=== PATIENT | female | born 1980 | race Caucasian/White ===

== ENCOUNTER 2018-12-12 06:16 | Day surgery (SDC) | payer OTHER ==
[2018-12-09 15:02] LABS: BASOPHILS # (AUTO) 0.05 x10^3/uL (0-0.1); BASOPHILS % (AUTO) 1 % (0-1); EOSINOPHILS # (AUTO) 0.09 x10^3/uL (0-0.4); EOSINOPHILS % (AUTO) 1 % (1-7); LYMPHOCYTES # (AUTO) 2.15 x10^3/uL (1-3.4); LYMPHOCYTES % (AUTO) 27 % (22-44); MD NO; MEAN CORPUSCULAR HEMOGLOBIN 31.5 pg (27.0-34.8); MEAN CORPUSCULAR HGB CONC 34.6 g/dL (32.4-35.8); MEAN PLATELET VOLUME 8.9 fL (7.4-10.4); MONOCYTES # (AUTO) 0.47 x10^3/uL (0.2-0.8); MONOCYTES % (AUTO) 6 % (2-9); NEUTROPHILS % (AUTO) 66 % (42-75); PLATELET COUNT 302 x10^3/uL (130-400); RED BLOOD COUNT 4.69 x10^6/uL (3.82-5.3); RED CELL DISTRIBUTION WIDTH 13.1 % (9.6-15.2)
[2018-12-09 15:14] LABS: HCG UR SG 1.012 (1.003-1.030); MICROSCOPIC NOT IND
[2018-12-09 15:21] LABS: CULTURE INDICATED? NO
[~2018-12-12] VITALS: Ht 170.2 cm; Wt 77.5 kg
[~2018-12-12 06:16] MED LIST: ALPR1TAB6 PO; DEXT10TA7 PO; DOCU-131 PO; HYDR-3240 PO; IBUP-1222 PO; OXYC-302 PO; PREN1TAB60 PO; SERT100T PO; SERT100T32 PO; SERT50TA PO; VALA10004 PO; VALA500T4 PO
[2018-12-12 06:42] VITALS: BP 108/72
[2018-12-12] MEDS ORDERED: LACTATED RINGERS 1,000 ML IV SCH (06:48)
[2018-12-12] MEDS ORDERED: LIDOCAINE-MPF 1%, 2ML ONE (06:51)
[2018-12-12] MEDS ORDERED: GABAPENTIN 300 MG CAPSULE PO ONE (07:00)
[2018-12-12] MEDS ORDERED: OxyconTIN ER 10 MG TAB.ER PO ONE (07:00)
[2018-12-12] MEDS ORDERED: ACETAMINOPHEN 500 MG TABLET PO ONE (07:00)
[2018-12-12] MEDS ORDERED: MIDAZOLAM 1 MG/ML, 2ML ONE (07:30)
[2018-12-12] MEDS ORDERED: FENTANYL PF 100 MCG/2ML ONE ×2 (07:30→10:07)
[2018-12-12] MEDS ORDERED: SCOPOLAMINE PATCH, 1.5MG PATCH.TD72 TD ONE ×2 (07:54)
[2018-12-12] MEDS ORDERED: FLUORESCEIN SODIUM 500 MG/5 ML ONE (08:00)
[2018-12-12] MEDS ORDERED: BUPIVACAINE/PF 0.25% ONE (08:00)
[2018-12-12] MEDS ORDERED: BUPIVACAINE/PF-EPI 0.25% 1:200K INFIL ONE (08:25)
[2018-12-12] MEDS ORDERED: DEXAMETHASONE 4 MG/ML, 5ML ONE (08:54)
[2018-12-12] MEDS ORDERED: ONDANSETRON 2MG/ML, 2ML ONE (08:54)
[2018-12-12] MEDS ORDERED: ROCURONIUM 10MG/ML,5ML ONE (08:54)
[2018-12-12] MEDS ORDERED: GLYCOPYRROLATE 0.2MG/1ML, 5ML ONE (08:54)
[2018-12-12] MEDS ORDERED: CEFAZOLIN 1,000 MG ONE (08:54)
[2018-12-12] MEDS ORDERED: PROPOFOL 10 MG/ML, 20ML ONE (08:54)
[2018-12-12] MEDS ORDERED: NEOSTIGMINE 1 MG/ML, 10ML ONE (08:54)
[2018-12-12] MEDS ORDERED: MIDAZOLAM 1 MG/ML, 2ML IV PRN (09:00)
[2018-12-12] MEDS ORDERED: OXYcodone 5 MG/5 ML ORAL.SOL UDC PO PRN (09:00)
[2018-12-12] MEDS ORDERED: ALBUTEROL/IPRATROPIUM 2.5MG/0.5MG, 3 ML NPPB PRN (09:00)
[2018-12-12] MEDS ORDERED: MEPERIDINE/PF 25MG/0.5ML IVPush PRN (09:00)
[2018-12-12] MEDS ORDERED: ONDANSETRON 2MG/ML, 2ML IV PRN (09:00)
[2018-12-12] MEDS ORDERED: DIAZEPAM 5 MG/ML, 2ML IVPush PRN (09:00)
[2018-12-12] MEDS ORDERED: KETOROLAC 30 MG/1 ML IV PRN (09:00)
[2018-12-12] MEDS ORDERED: PROMETHAZINE 25 MG/ML, 1ML IV PRN (09:00)
[2018-12-12] MEDS ORDERED: LABETALOL 5 MG/ML SYRINGE IV PRN (09:00)
[2018-12-12] MEDS ORDERED: OXYcodone 5 MG/5 ML ORAL.SOL UDC ONE (10:07)
[2018-12-12] MEDS: FENTANYL PF 100 MCG/2ML IV PRN ×2 (10:09→10:25)
[2018-12-12] MEDS ORDERED: PROMETHAZINE 25 MG/ML, 1ML ONE (10:29)
[2018-12-12] MEDS ORDERED: HYDROmorphone 1 MG/ML, 1ML ONE (10:37)
[2018-12-12] MEDS: HYDROmorphone 2 MG/ML, 1ML IVPush PRN ×3 (10:39→10:50)
[2018-12-12 12:18] LABS: HEMOGRAM NOTE RECHECKED
[2018-12-12] MEDS ORDERED: METOCLOPRAMIDE 5 MG/ML, 2ML ONE (14:41)
[2018-12-12] MEDS ORDERED: EPHEDRINE 50 MG/ML, 1ML ONE (14:41)
== END 2018-12-12 14:45 | disposition home or self-care (01) ==
LOC: OUT 06:16
PROVIDERS: ATTEND Obstetrics & Gynecology
DX: D25.9 Leiomyoma of uterus, unspecified (principal); N71.1 Chronic inflammatory disease of uterus; N92.0 Excessive and frequent menstruation with regular cycle; N94.6 Dysmenorrhea, unspecified
CPT/HCPCS: 36415; 58552; 81003; 81025; 85014; 85018; 85025; 86850; 86900; 88307; J0690; J1100; J1170; J2250; J2405; J2550; J2704; J2710; J2765; J3010; J3490; J7120